=== PATIENT | male | born 1980 | race African-American/Black ===

== ENCOUNTER 2016-06-06 22:11 | Emergency (ER) | payer OTHER ==
[~2016-06-06] VITALS: Ht 180.3 cm; Wt 111.6 kg
[~2016-06-06 22:11] MED LIST: FLEXERIL10 MG PO; IBUPROFEN800 M1 PO; IBUPROFEN800 MG PO; PERCOCET 5-3251 EACH PO; TRAMADOL50 MG PO
--- NOTE | 2016-06-06 23:19 | ED MVC/FALL/TRAUMA COMPLAINT ---
History of Present Illness General Chief Complaint: Fall Stated Complaint: S/P FALL ON ICE, BACK,L KNEE,R WRIST PAIN Source: patient, old records Exam Limitations: no limitations Vital Signs & Intake/Output Vital Signs & Intake/Output Vital Signs Date Time Temp Pulse Resp B/P Pulse O2 O2 Flow FiO2 Ox Delivery Rate 06/07 0000 98.0 73 18 152/90 98 Room Air 06/06 2313 Room Air 06/06 2216 98.3 89 18 161/90 99 Room Air ED Intake and Output 06/07 0000 06/06 1200 Intake Total 0 Output Total Balance 0 Intake, Oral 0 Patient 246 lb Weight Allergies Coded Allergies: NO KNOWN ALLERGIES (09/17/15) Reconcile Medications CYCLOBENZAPRINE HCL (Flexeril) 10 MG TAB 1 TAB PO Q8H PRN muscle relaxant Avoid operating motor vehicle or heavy machinery Ibuprofen 800 MG TABLET 1 TAB PO TID PRN PAIN Oxycodone HCl/Acetaminophen (Percocet 5-325 MG Tablet) 1 EACH TABLET 1 TAB PO TID PRN PAIN SIX....[id number] Oxycodone HCl/Acetaminophen (Percocet 5-325 MG Tablet) 5 MG-325 MG TABLET 1 TAB PO BID PRN breakthrough pain TRAMADOL HCL (Tramadol) 50 MG TAB 1-2 TAB PO Q6P PRN PAIN Triage Note: PT TO ED FOR GENERALIZED BODY PAIN AFTER A SLIP AND FALL AT 8 PM. TOOK ONE OF HIS MOM'S HYDROCODONE WITH NO RELIEF. Triage Nurses Notes Reviewed? yes Onset: Abrupt Duration: hour(s): (1), constant Timing: recent history Severity: moderate Severity Numbers: 7 Injuries/Fall Location: back Method of Injury: fall Loss of Consciousness: no loss of consciousness No Modifying Factors: none Associated Symptoms: DENIES HPI: 35-year-old male with history of chronic back pain presents to emergency room after a mechanical fall on ice hitting his upper back now presents complaining of moderate aching upper back and right wrist pain 7 out of 10 and nonradiating. There is no loss of consciousness he did not hit his head. He denies any lower back pain abdominal pain other arm or leg injury. He was able to get up after the fall and ambulate. He took an oxycodone at home with improvement in his symptoms. There is no numbness or tingling no nausea no vomiting no chest pain difficulty breathing abdominal pain nausea or vomiting there is no other injury no modifying factors or associated symptoms otherwise. (JEREL JAMES) Past History Travel History Traveled to [place] past 21 day No Medical History Any Pertinent Medical History? 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 No (JEREL JAMES) Review of Systems Review of Systems Constitutional: Reports: see HPI. All Other Systems: Reviewed and Negative Comments Review of systems: See HPI, All other systems negative. Constitutional, no chills no fever, no malaise HEENT: no sore throat no congestion, no ear pain Cardiovascular: No chest pain , no palpitation , Skin, no rashes, no change in skin Respiratory: No dyspnea no cough no sputum GI: No nausea no vomiting, no diarrhea, no bloating/constipation : No dysuria No hematuria, no frequency, no discharge Muscle skeletal: joint pain, no joint swelling, back pain, no neck pain, Neurologic: no headache Psych: No stress Heme/endocrine: No bruising no bleeding Immunology: No lymphadenopathy, (JEREL JAMES) Physical Exam Physical Exam General Appearance: well developed/nourished, no apparent distress, alert Comments: Well-developed well-nourished person in no acute distress HEENT: Normal EENT exam; PERRL, EOMI, HEAD is atraumatic. moist mucous membranes. Neck: Supple, no midline or paracervical tenderness normal range of motion without pain or tenderness Back: There is bilateral parathoracic muscle tenderness palpation no ecchymosis or signs of trauma no CVA tenderness. Full range of motion Cardiovascular: Regular rate and rhythms no murmurs Respiratory: Chest nontender.There were no bony deformities, no asymmetry. No respiratory distress. Patient speaking in full complete sentences. Breath sounds clear to auscultation bilaterally: NO W/R/R Abdomen: Soft, nontender nondistended, no appreciable organomegaly. Normal bowel sounds. No rebound/guarding, Shoulder: Atraumatic/Stable. FROM . Elbow: Atraumatic/stable. FROM. No laxity Upper arm/Forearm: Atraumatic. Nontender. 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 Skin intact. FROM no scaphoid tenderness no obvious deformity no swelling no ecchymosis, there is mild tenderness over the dorsal Pulses: Normal/equal radial pulses bilaterally. Brisk cap refill Hip/Pelvis: Atraumatic/Stable. FROM. No pain with pelvic compression Knee: Atraumatic/stable. FROM. No joint swelling, no effusion. No laxity. No pain with ROM Leg: Atraumatic. Nontender. No edema, 5 out of 5 strength in the lower extremity, normal dorsiflexion of great toe bilaterally, gross sensation is intact, Ankle/Foot: Atraumatic/stable. Skin intact. FROM. No swelling Pulses: Normal/equal DP/PT pulses bilaterally. Brisk cap refill Neuro: Alert oriented x3, motor sensory normal. There were no obvious focal neurologic abnormalities. Skin: No appreciable rash on exposed skin, skin is warm and dry. Psych: Mood and affect is normal, memory and judgment is normal. Core Measures ACS in differential dx? No Severe Sepsis Present: No Septic Shock Present: No (SUSAN GRISSOM,JEREL) Progress Differential Diagnosis: C/T/L spine injury, ext injury, ICH, pelvis injury, spinal cord injury Plan of Care: Orders Procedure Date/time Status XRY-WRIST COMPLETE-RIGHT 06/06 2345 Active XRY-THORACIC SPINE 06/06 2345 Active X-rays ordered patient is declining a pain offered I discussed the patient his x-ray results need for supportive care rest ice Tylenol Motrin. Advised to continue taking his pain medications as prescribed follow-up with his primary care physician advised return anytime sooner with any concerns he feels comfortable with plan, patient is ambulatory with steady gait upon discharge (JEREL JAMES) Diagnostic Imaging: Viewed by Me: Radiology Read. Discussed w/RAD: Radiology Read. Radiology Impression: PATIENT: MELISSA LAMBERT PRESENT AGE: 35 PATIENT ACCOUNT NO: [id number] : 79 LOCATION: [facility] ORDERING PHYSICIAN: JEREL GRISSOM SERVICE DATE: 06/06/16 EXAM TYPE: RAD - XRY-THORACIC SPINE EXAMINATION: XR THORACIC SPINE CLINICAL INFORMATION: Fall, pain COMPARISON: None TECHNIQUE: AP and lateral views. FINDINGS: Alignment appears anatomic. Vertebral body heights are maintained. Intervertebral disc spaces appear preserved. No acute fracture is seen. IMPRESSION: No acute findings identified. DICTATED BY: BRANDON COFFEY MD DATE/TIME DICTATED:06/07/1615 FORESTER AIDE:SANTOS DATE/TIME TRANSCRIBED:06/07/1615 CONFIDENTIAL, DO NOT COPY WITHOUT APPROPRIATE AUTHORIZATION. <Electronically signed in Other Vendor System> SIGNED BY: BRANDON COFFEY MD 06/07/1621, PATIENT: MELISSA LAMBERT PRESENT AGE: 35 PATIENT ACCOUNT NO: [id number] : 79 LOCATION: [facility] ORDERING PHYSICIAN: JEREL GRISSOM SERVICE DATE: 06/06/16 EXAM TYPE: RAD - XRY-WRIST COMPLETE-RIGHT EXAMINATION: XR WRIST, RIGHT CLINICAL INFORMATION: Fall, pain COMPARISON: 2014 TECHNIQUE: Four views of the right wrist. FINDINGS: Osseous alignment is anatomic. No acute fracture is seen. No significant focal soft tissue abnormality is identified. IMPRESSION: No acute findings identified. DICTATED BY : BRANDON COFFEY MD DATE/TIME DICTATED:06/07/1611 FORESTER AIDE: SANTOS DATE/TIME TRANSCRIBED:06/07/1611 CONFIDENTIAL, DO NOT COPY WITHOUT APPROPRIATE AUTHORIZATION. <Electronically signed in Other Vendor System> SIGNED BY: BRANDON COFFEY MD 06/07/16 002 (JEREL JAMES) Departure Departure Time of Disposition: 26 Disposition: HOME OR SELF CARE Condition: Stable Clinical Impression Primary Impression: Back strain Secondary Impressions: Fall, Wrist strain Referrals: PATIENT HAS NO PRIMARY CARE DR (PCP/Family) Additional Instructions: Rest ice and Tylenol Motrin as needed for pain. Continue taking your pain medications as prescribed follow-up with her primary care physician this week return with any concerns Departure Forms: Customer Survey General Discharge Information Prescriptions: Current Visit Scripts Oxycodone HCl/Acetaminophen (Percocet 5-325 MG Tablet) 1 TAB PO BID PRN breakthrough pain #6 TAB (JEREL JAMES) PA/EMERGENCY ROOM NURSE Co-Sign Statement Statement: ED Attending supervision documentation- [] I saw and evaluated the patient. I have also reviewed all the pertinent lab results and diagnostic results. I agree with the findings and the plan of care as documented in the PA's/EMERGENCY ROOM NURSE's documentation. [X] I have reviewed the ED Record and agree with the PA's/EMERGENCY ROOM NURSE's documentation. [] Additions or exceptions (if any) to the PAs/EMERGENCY ROOM NURSE's note and plan are summarized below: [] (JENNIE MERCADO,DANYELL Bailey)
[2016-06-07] VITALS: BP 152/90
--- NOTE | 2016-06-07 00:20 | RADIOLOGY REPORT ---
EXAMINATION: XR WRIST, RIGHT CLINICAL INFORMATION: Fall, pain COMPARISON: 04/02/2015 TECHNIQUE: Four views of the right wrist. FINDINGS: Osseous alignment is anatomic. No acute fracture is seen. No significant focal soft tissue abnormality is identified. IMPRESSION: No acute findings identified.
--- NOTE | 2016-06-07 00:22 | RADIOLOGY REPORT ---
EXAMINATION: XR THORACIC SPINE CLINICAL INFORMATION: Fall, pain COMPARISON: None TECHNIQUE: AP and lateral views. FINDINGS: Alignment appears anatomic. Vertebral body heights are maintained. Intervertebral disc spaces appear preserved. No acute fracture is seen. IMPRESSION: No acute findings identified.
[2016-06-07] MEDS ORDERED: PERCOCET 5-3251 EACH PO (00:28)
== END 2016-06-07 00:42 ==
LOC: ERH 22:11
DX: S29.012A Strain of muscle and tendon of back wall of thorax, initial encounter (principal); S66.811A Strain of other specified muscles, fascia and tendons at wrist and hand level, right hand, initial encounter; W00.0XXA Fall on same level due to ice and snow, initial encounter
CPT/HCPCS: 72070; 73110-RT

== ENCOUNTER 2016-08-10 22:28 | Emergency (ER) | payer OTHER ==
[~2016-08-10] VITALS: Ht 180.3 cm; Wt 115.7 kg
--- NOTE | 2016-08-10 23:01 | ED NECK/BACK PAIN COMPLAINT ---
History of Present Illness General Chief Complaint: Low Back Pain/Injury Stated Complaint: FALL LAST STORM LOWER LEFT SIDE BACK PAIN Source: patient Exam Limitations: no limitations Vital Signs & Intake/Output Vital Signs & Intake/Output Vital Signs Date Time Temp Pulse Resp B/P B/P Pulse O2 O2 Flow FiO2 Mean Ox Delivery Rate 08/10 2340 97.9 89 20 138/74 95 08/10 2235 98.0 96 16 142/79 98 Room Air ED Intake and Output 08/11 0000 08/10 1200 Intake Total Output Total Balance Patient 255 lb Weight Weight Reported by Patient Measurement Method Allergies Coded Allergies: NO KNOWN ALLERGIES (09/17/15) Reconcile Medications CYCLOBENZAPRINE HCL (Flexeril) 10 MG TAB 1 TAB PO Q8H PRN muscle relaxant Avoid operating motor vehicle or heavy machinery Ibuprofen 800 MG TABLET 1 TAB PO TID PRN PAIN Ketorolac Tromethamine 10 MG TABLET 1 TAB PO TID PRN PAIN Oxycodone HCl/Acetaminophen (Percocet 5-325 MG Tablet) 1 EACH TABLET 1 TAB PO TID PRN PAIN SIX....[id number] Oxycodone HCl/Acetaminophen (Percocet 5-325 MG Tablet) 5 MG-325 MG TABLET 1 TAB PO BID PRN breakthrough pain Oxycodone HCl/Acetaminophen (Percocet 5-325 MG Tablet) 5 MG-325 MG TABLET 1 TAB PO BID PRN PAIN TRAMADOL HCL (Tramadol) 50 MG TAB 1-2 TAB PO Q6P PRN PAIN Triage Note: PT TO TRIAGE WITH C/O LEFT LOWER BACK PAIN 8/10 SINCE LAST NIGHT. PT DENIES RECENT INJURIES, REPORTS FALL 2 MONTHS AGO. PT TOOK MOTRIN AT 6PM WITH NO RELIEF. VSS. Triage Nurses Notes Reviewed? yes Onset: Gradual Duration: getting worse Timing: recent history Quality/Severity: severe Location: paraspinous muscles Radiation: none Loss of Consciousness: no loss of consciousness HPI: Patient is a 36-year-old male who presents to emergency room that approximately 3 weeks ago patient fell and slipped on ice was patient has had intermittent thoracic muscular pain since injury. Patient does state that he works in [employer] fits with when he woke up his thoracic muscular pain has worsens. Patient has been taking ibuprofen and previously prescribed Percocet with mild relief of symptoms. Denies any extremity paresthesias or weakness or pain. (JEREL BANKS) Past History Travel History Traveled to [place] past 21 day No Medical History Any Pertinent Medical History? 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 No (JEREL BANKS) Review of Systems Review of Systems Constitutional: Reports: no symptoms. Eyes: Reports: no symptoms. Ears, Nose, Throat, Mouth: Reports: no symptoms. Respiratory: Reports: no symptoms. Cardiovascular: Reports: no symptoms. Gastrointestinal/Abdominal: Reports: no symptoms. Musculoskeletal: Reports: see HPI, back pain, muscle pain, muscle stiffness. Skin: Reports: no symptoms. Neurological/Psychological: Reports: no symptoms. All Other Systems: Reviewed and Negative (JEREL BANKS) Physical Exam Physical Exam General Appearance: no apparent distress, alert, comfortable Neck: normal inspection, supple, full range of motion Skin: intact, normal color Comments: Well-developed well-nourished person in no acute distress HEENT: Normal EENT exam Neck: Supple, no lymphadenopathy, normal range of motion without pain or tenderness Back: No central spinous tenderness Cardiovascular: Regular rate and rhythms no murmurs rubs or gallops, normal JVP Respiratory: Chest nontender. No respiratory distress.breath sounds clear to auscultation bilaterally Abdomen: Soft, nontender nondistended, no appreciable organomegaly. Normal bowel sounds. No ascites Extremity: No edema, no calf tenderness to palpation, normal and equal pulses. Bilateral upper extremity and lower extremity myotomes and dermatomes intact Neuro: Alert oriented x3, motor sensory normal, Skin: No appreciable rash on exposed skin, skin is warm and dry. Psych: Mood and affect is normal, memory and judgment is normal. Diagram Body: 1) Muscular point tenderness noted normal inspection no central spinous tenderness 2) Muscular point tenderness noted normal inspection no central spinous tenderness (JEREL BANKS) Progress Differential Diagnosis: AAA, aortic dissection, C spine injury, carotid dissection, cauda equina syn, herniated disc, myofascial strain, pyelo/UTI, sciatica, spinal cord inj, thoracic outlet syn, T/L spine injury, ureterolithiasis Plan of Care: Current Medications Sig/Noemi Start time Last Medication Dose Stop Time Status Admin Ketorolac 30 MG ONCE ONE 08/10 2314 AC Tromethamine 08/11 2315 (Toradol) Patient has no central spinous tenderness and no neurovascular compromise. Patient has normal steady gait. Patient was strongly advised to follow up and establish [facility] faculty practice patient will be treated for concerns of thoracic back pain (JEREL BANKS) Departure Departure Disposition: HOME OR SELF CARE Condition: Stable Clinical Impression Primary Impression: Thoracic back pain Referrals: PATIENT HAS NO PRIMARY CARE DR (PCP/Family) Additional Instructions: As discussed begin to ice area the directly 20 minutes every 2 hours. Begin the prescription of ketorolac for pain and inflammation. Begin the prescription of Percocet for breakthrough pain relief. Prescriptions waiting a [facility] pharmacy. Please call the list of primary care doctors provided to you with the brochure list, call tomorrow to get a doctor. If symptoms worsen return to emergency room Departure Forms: Customer Survey General Discharge Information Prescriptions: Current Visit Scripts Ketorolac Tromethamine 1 TAB PO TID PRN PAIN #15 TAB Oxycodone HCl/Acetaminophen (Percocet 5-325 MG Tablet) 1 TAB PO BID PRN PAIN #8 TAB (JEREL BANKS) PA/PRODUCTION MACHINE SHOP SUPERVISOR Co-Sign Statement Statement: ED Attending supervision documentation- [] I saw and evaluated the patient. I have also reviewed all the pertinent lab results and diagnostic results. I agree with the findings and the plan of care as documented in the PA's/PRODUCTION MACHINE SHOP SUPERVISOR's documentation. [X] I have reviewed the ED Record and agree with the PA's/PRODUCTION MACHINE SHOP SUPERVISOR's documentation. [] Additions or exceptions (if any) to the PAs/PRODUCTION MACHINE SHOP SUPERVISOR's note and plan are summarized below: [] (JUDY MERCADO,ALEX Woodward)
[2016-08-10] MEDS ORDERED: KETOROLAC TROME10 M1 PO (23:15)
[2016-08-10] MEDS ORDERED: PERCOCET 5-3251 EACH PO (23:15)
[2016-08-10 23:40] VITALS: BP 138/74
== END 2016-08-10 23:41 ==
LOC: ERH 22:28
DX: M54.6 Pain in thoracic spine (principal)
CPT/HCPCS: 96372; J1885

== ENCOUNTER 2016-09-07 00:25 | Emergency (ER) | payer OTHER ==
[~2016-09-07] VITALS: Ht 180.3 cm; Wt 114.3 kg
[~2016-09-07 00:25] MED LIST changes: +KETOROLAC TROME10 M1 PO
[2016-09-07 01:50] VITALS: BP 106/70
--- NOTE | 2016-09-07 02:45 | ED UPPER/LOWER EXTREMITY COMPL ---
History of Present Illness General Chief Complaint: Lower Extremity Problems Stated Complaint: RT KNEE PAIN S/P FALL FEW MTHS AGO ALSO BACK PAIN Source: patient Exam Limitations: no limitations Vital Signs & Intake/Output Vital Signs & Intake/Output Vital Signs Date Time Temp Pulse Resp B/P B/P Pulse O2 O2 Flow FiO2 Mean Ox Delivery Rate 09/07 0150 97.8 77 18 106/70 97 Room Air Allergies Coded Allergies: No Known Drug Allergies (NKDA 09/07/16) Reconcile Medications CYCLOBENZAPRINE HCL (Flexeril) 10 MG TAB 1 TAB PO Q8H PRN muscle relaxant Avoid operating motor vehicle or heavy machinery Ibuprofen 800 MG TABLET 1 TAB PO TID PRN PAIN Ketorolac Tromethamine 10 MG TABLET 1 TAB PO TID PRN PAIN Oxycodone HCl/Acetaminophen (Percocet 5-325 MG Tablet) 1 EACH TABLET 1 TAB PO TID PRN PAIN SIX....[id number] Oxycodone HCl/Acetaminophen (Percocet 5-325 MG Tablet) 5 MG-325 MG TABLET 1 TAB PO BID PRN breakthrough pain Oxycodone HCl/Acetaminophen (Percocet 5-325 MG Tablet) 5 MG-325 MG TABLET 1 TAB PO BID PRN PAIN TRAMADOL HCL (Tramadol) 50 MG TAB 1-2 TAB PO Q6P PRN PAIN Triage Note: PT TO ED C/O EXACERBATION OF CHRONIC LOW BACK PAIN SINCE FALL A FEW MONTHS AGO. STATES RT KNEE HAS BEEN HURTING SINCE THE SAME FALL MONTHS AGO, AND HAS REMAINS SWOLLEN. HAS BEEN SEEN HERE FOR THE SAME. FINISHED PERCOCET 5'S DAY BEFOR YESTERDAY FALL WAS IN APRIL Triage Nurses Notes Reviewed? yes HPI: Patient presents for evaluation of acute exacerbation of chronic low back pain and right leg pain. Patient states his pain began after a fall about 3 months ago. Patient states his right knee pain as a severe sharp pain gets worse with ambulation. It is typically constant but fluctuates in intensity. The knee also becomes swollen at times. The patient's back pain is a mid to lower back pain, achy in nature and worse with prolonged sitting and certain movements. He has used Percocet and ketorolac in the past with improvement. He states muscle relaxers make him too groggy. He denies any associated urinary or fecal incontinence or urinary retention. He denies saddle paresthesias. Past History Travel History Traveled to [place] past 21 day No Medical History Any Pertinent Medical History? 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 No Review of Systems Review of Systems Constitutional: Reports: no symptoms. EENTM: Reports: no symptoms. Respiratory: Reports: no symptoms. Cardiovascular: Reports: no symptoms. Gastrointestinal/Abdominal: Reports: no symptoms. Genitourinary: Reports: no symptoms. Musculoskeletal: Reports: see HPI. Skin: Reports: no symptoms. Neurological/Psychological: Reports: no symptoms. Hematologic/Endocrine: Reports: no symptoms. Immunological: Reports: no symptoms. All Other Systems: Reviewed and Negative Physical Exam Physical Exam General Appearance: SEE BELOW Comments: Gen.: Well-nourished, well-developed, no acute respiratory distress. Head: Normocephalic, atraumatic. Eyes: Normal inspection bilaterally Ears: Normal inspection bilaterally Nose: Normal inspection, nasal cannula in place Throat/mouth : Moist mucosa Neck: Supple, full range of motion, no goiter Heart: Regular rate and rhythm Lungs: Quiet respirations Back: Normal range of motion, tenderness of the superior lumbar spine without associated ecchymoses or soft tissue swelling. Extremities: Right knee: Mild effusion without erythema or warmth. Patient ranges the knee fully but with pain on maximal flexion. Straight leg raise is negative bilaterally. Lower extremities: Deep tendon reflexes are normal bilaterally. Sensation intact to light touch bilaterally. Neurologic: Cranial nerves grossly intact, speech is clear Skin: warm and dry Psychiatric: Calm, cooperative, no apparent delusions or hallucinations Progress Differential Diagnosis: contusion, dislocation, fracture, sprain Plan of Care: pain control, rest, ortho Departure Departure Disposition: HOME OR SELF CARE Condition: Stable Clinical Impression Primary Impression: Right knee pain Qualifiers: Chronicity: chronic Qualified Codes: M25.561 - Pain in right knee; G89.29 - Other chronic pain Secondary Impressions: Mid back pain Referrals: PATIENT HAS NO PRIMARY CARE DR (PCP/Family) Additional Instructions: Voltaren as prescribed for pain. Add Percocet if necessary. Follow-up with Dr. Sarmiento for evaluation of your right knee pain. You should also be able to see a back specialist with Dr. Sarmiento's group as well. Avoid heavy lifting or other exertion. Try to obtain a primary care physician (contact the [facility] practice for example) for general medical evaluation as soon as possible. Return if any concerns or sudden worsening. Thank you for choosing the [facility] for your care. It was a pleasure to serve you today. Liborio Quinteros M.D. [facility] Departure Forms: Customer Survey General Discharge Information Prescriptions: Current Visit Scripts Diclofenac Potassium 1 TAB PO TID PRN PAIN #30 TAB Oxycodone HCl/Acetaminophen (Percocet 5-325 MG Tablet) 1 TAB PO Q6P PRN pain #10 TAB
[2016-09-07] MEDS ORDERED: PERCOCET 5-3251 EACH PO (03:06)
[2016-09-07] MEDS ORDERED: DICLOFENAC POTA50 M1 PO (03:06)
== END 2016-09-07 03:18 ==
LOC: ERH 00:25
DX: M25.561 Pain in right knee (principal); M54.5 Low back pain

== ENCOUNTER 2017-10-03 23:56 | Emergency (ER) | payer OTHER ==
[~2017-10-03 23:56] MED LIST changes: +ADVIL200 M1 PO; +DICLOFENAC POTA50 M1 PO
--- NOTE | 2017-10-04 01:09 | ED THROAT/DENTAL COMPLAINT ---
History of Present Illness General Chief Complaint: Sore Throat, Dental Pain Stated Complaint: DENTAL PAIN TEETH CLEANING,AND RT KNEE PAIN,SWOLLE Source: patient Exam Limitations: no limitations Vital Signs & Intake/Output Vital Signs & Intake/Output Vital Signs Date Time Temp Pulse Resp B/P B/P Pulse O2 O2 Flow FiO2 Mean Ox Delivery Rate 10/04 0105 100 Room Air Allergies Coded Allergies: aspirin (HIVES 10/04/17) Reconcile Medications Amoxicillin/Potassium Clav (Augmentin 875-125 Tablet) 875 MG-125 MG TABLET 1 TAB PO BID DENTAL INFECTION Ibuprofen (Advil) 200 MG CAPSULE 3-4 TAB PO DAILY PAIN (Reported) Ibuprofen 800 MG TABLET 1 TAB PO TID PRN pain Ibuprofen 800 MG TABLET 1 TAB PO TID PRN PAIN Oxycodone HCl/Acetaminophen (Percocet 5-325 MG Tablet) 5 MG-325 MG TABLET 1 TAB PO BID PRN PAIN Oxycodone HCl/Acetaminophen (Percocet 5-325 MG Tablet) 5 MG-325 MG TABLET 1-2 TAB PO Q6P PRN PAIN Triage Nurses Notes Reviewed? yes Onset: Gradual Duration: week(s):, waxing and waning Timing: recent history Injury Environment: home Severity: mild Modifying Factors: Improves With: rest. Worsens With: movement. Associated Symptoms: right knee swelling HPI: 37 yo gentleman presents with right knee pain x many months and right lower dental pain. "I feel like my teeth are on fire" for the past 2-3 days. He notes that he has had chronic right knee pain for many months, has had a negative xray, has tried motrin without relief, and has worn intermittently a knee brace. He notes no new trauma. He is otherwise well. Past History Travel History Traveled to [place] past 21 day No Medical History Any Pertinent Medical History? see below for history Neurological: NONE EENT: NONE Cardiovascular: NONE Respiratory: asthma Gastrointestinal: NONE Hepatic: NONE Renal: NONE Musculoskeletal: chronic back pain, CHRONIC KNEE PAIN Psychiatric: NONE Endocrine: hyperthyroidism Blood Disorders: NONE Cancer(s): NONE ACID SPLICER/Reproductive: NONE History of MRSA: No History of VRE: No History of CDIFF: No Surgical History Surgical History: non-contributory, N Psychosocial History Who do you live with Father Services at Home None What is your primary language Estonian Family History Hx Contributory? No Review of Systems Review of Systems Constitutional: Reports: no symptoms. EENTM: Reports: no symptoms. Respiratory: Reports: no symptoms. Cardiovascular: Reports: no symptoms. GI: Reports: no symptoms. Genitourinary: Reports: no symptoms. Musculoskeletal: Reports: no symptoms. Skin: Reports: no symptoms. Neurological/Psychological: Reports: no symptoms. Hematologic/Endocrine: Reports: no symptoms. Immunologic/Allergic: Reports: no symptoms. All Other Systems: Reviewed and Negative Physical Exam Physical Exam General Appearance: well developed/nourished, mild distress Head: atraumatic, normal appearance Eyes: Bilateral: normal appearance. Ears: Bilateral: canal normal. Nose: normal inspection Mouth/Throat: poor dentition, swelling and erythema in right lower molars Neck: normal inspection, supple, full range of motion Cardiovascular/Respiratory: normal breath sounds Neurologic/Psych: no motor/sensory deficits, awake, alert, oriented x 3 Comments: right knee - ligaments intact, minimal effusion, ROM is normal, no clicks/ laxity. Core Measures ACS in differential dx? No Sepsis Present: No Sepsis Focused Exam Completed? No Progress Differential Diagnosis: carious tooth, odontogenic abscess, knee sprain vs meniscal tear vs other. Plan of Care: discussed at length... sent rx for augmentin and ibuprofen... pt to follow up with dentist and with pmd to consider MRI vs PT referral. advocated using knee brace. Departure Departure Disposition: HOME OR SELF CARE Condition: Stable Clinical Impression Primary Impression: Dental infection Secondary Impressions: Knee sprain Referrals: Patient Has No Primary Care Dr (PCP/Family) Departure Forms: Customer Survey General Discharge Information Prescriptions: Current Visit Scripts Ibuprofen 1 TAB PO TID PRN pain #30 TAB Amoxicillin/Potassium Clav (Augmentin 875-125 Tablet) 1 TAB PO BID #20 TAB
[2017-10-04] MEDS ORDERED: IBUPROFEN800 M1 PO (01:15)
[2017-10-04] MEDS ORDERED: AUGMENTIN 875-1 EACH PO (01:15)
[2017-10-04 01:19] VITALS: BP 110/82
== END 2017-10-04 01:22 ==
LOC: ERH 23:56
DX: S83.91XA Sprain of unspecified site of right knee, initial encounter (principal); K04.7 Periapical abscess without sinus; X58.XXXA Exposure to other specified factors, initial encounter